=== PATIENT | female | born 2000 | race Caucasian/White ===

== ENCOUNTER 2023-05-03 08:03 | Emergency (ER) | payer BC ==
[2023-05-03] MEDS ORDERED: Ketorolac Tromethamine 30 MG (1 mL) VIAL ONE (08:40)
[2023-05-03] MEDS ORDERED: Dexamethasone 10 MG/ML VIAL ONE (08:40)
== END 2023-05-03 08:33 | disposition home or self-care (01) ==
LOC: CSHERS 08:03
DX: U07.1 COVID-19 (principal); J02.9 Acute pharyngitis, unspecified; I10 Essential (primary) hypertension
CPT/HCPCS: 96372; 99282; J1100; J1885